=== PATIENT | female | born 1995 | race Caucasian/White ===

== ENCOUNTER 2022-11-06 09:55 | Outpatient (CLI) | payer SELFPAY | END 2022-11-06 09:56 | disposition home or self-care (01) | PROVIDERS: PCP Family Medicine; Visit Provider Family Medicine | DX: Z00.00 Encounter for general adult medical examination without abnormal findings (principal); R73.9 Hyperglycemia, unspecified; D50.9 Iron deficiency anemia, unspecified; N92.0 Excessive and frequent menstruation with regular cycle; R73.03 Prediabetes; Z87.898 Personal history of other specified conditions | CPT/HCPCS: 80048; 80061; 82728; 84443 ==